=== PATIENT | male | born 1980 | race Caucasian/White ===

== ENCOUNTER 2018-10-12 18:59 | Emergency (ER) | payer OTHER, BC ==
[~2018-10-12] VITALS: Ht 167.6 cm; Wt 64.0 kg
[2018-10-12 19:04] VITALS: BP 142/94
[2018-10-12] MEDS ORDERED: TETanus/Pertussis (Acell)/Diphther VAC/PF (Tdap-Adult) 0.5ml syringe IM ONE (20:00)
--- NOTE | 2018-10-12 20:00 | NUR ---
[place] placed at bedside by ARMANDO Wiggins.
== END 2018-10-12 20:49 | disposition home or self-care (01) ==
LOC: ER 19:01
DX: S01.01XA Laceration without foreign body of scalp, initial encounter (principal); W20.8XXA Other cause of strike by thrown, projected or falling object, initial encounter; Y93.89 Activity, other specified; Y92.89 Other specified places as the place of occurrence of the external cause; Y99.8 Other external cause status
CPT/HCPCS: 12002; 90471; 90715; 99283